=== PATIENT | male | born 1970 | race Caucasian/White ===

== ENCOUNTER 2020-08-17 15:03 | Emergency (ER) | payer MEDICAID, OTHER ==
[~2020-08-17] VITALS: Ht 165.1 cm; Wt 100.0 kg
[~2020-08-17 15:03] MED LIST: ASPI-1497 PO; CARV3.1242 PO; CLON0.2T PO; ISOS30TA12 PO; LOSA100T32 PO; NITR0.4T49 SL; SIMV-46 PO; SITA100T11 PO
[2020-08-17] MEDS ORDERED: SODIUM CHLORIDE 0.9% 1,000 ML IV ONE ×3 (15:30→21:45)
[2020-08-17] MEDS ORDERED: CLINDAMYCIN 600 MG in DEXTROSE 5% WATER 50 ML IV ONE (15:30)
[2020-08-17 15:58] LABS: HEMATOCRIT. 45.5 % (42.0-52.0); MEAN CORPUSCULAR VOLUME 82.2 fL (80.0-94.0); MEAN PLATELET VOLUME 9.8 fl (7.4-10.4); PLATELET 129 x1000/uL (130-400); RED BLOOD CELL COUNT 5.53 mill/uL (4.7-6.1); RED CELL DISTRIBUTION WIDTH 15.9 % (11.6-14.6)
[2020-08-17 16:04] LABS: CHLORIDE 93 mEq/L (98-107)
[2020-08-17 16:14] LABS: PLATELET ESTIMATE SLIGHTLY DECREASED
[2020-08-17] MEDS ORDERED: CLINDAMYCIN 600MG PREMIX 50 ML IV NR (17:00)
[2020-08-17] MEDS ORDERED: INSULIN LISPRO 100 UNITS/ML SUBCUT ONE (17:15)
[2020-08-17] MEDS ORDERED: MORPHINE SULFATE 4 MG/ML CPJ (NOT FOR IM USE) IV ONE (17:15)
[2020-08-17] MEDS ORDERED: LIDOCAINE HCL 1% 20ML VIAL (Pyxis) INJ INFIL ONE (18:00)
[2020-08-17] MEDS ORDERED: IOHEXOL-300 100 ML BOTTLE ONE (18:12)
[2020-08-17] MEDS ORDERED: FENTANYL CITRATE/PF 50MCG/ML 2ML VIAL IV ONE (19:00)
[2020-08-17] MEDS ORDERED: KETOROLAC 15MG/ML VIAL IV ONE (21:45)
[2020-08-17] MEDS ORDERED: ACETAMINOPHEN 325MG TABLET PO ONE (21:45)
[2020-08-17 22:48] VITALS: BP 125/54
== END 2020-08-17 22:58 | disposition home or self-care (01) ==
LOC: ER 15:03 → EDBEDREQ 15:35 → CANBEDREQ 21:47 → ER 22:58
DX: A41.9 Sepsis, unspecified organism (principal); R65.20 Severe sepsis without septic shock; E11.65 Type 2 diabetes mellitus with hyperglycemia; K61.0 Anal abscess; I10 Essential (primary) hypertension; E78.00 Pure hypercholesterolemia, unspecified; Z93.3 Colostomy status; Z79.899 Other long term (current) drug therapy; Z98.890 Other specified postprocedural states
CPT/HCPCS: 10060; 36415; 72193; 80053; 82962; 83605; 85025; 86140; 87040; 93005; 96361; 96365; 96372; 96375; 99285; J1815; J1885; J2270; J3010; J3490; J7030; Q9967; Z7610; J7060